=== PATIENT | female | born 1950 | race American Indian/Alaskan Native ===

== ENCOUNTER 2021-10-19 15:57 | Emergency (ER) | payer MEDICARE ==
[~2021-10-19 15:57] MED LIST: ATROPINE 0.1% (1 MG/10 ML) CARDIAC SYRINGE ONE; DOPamine DRIP 800 MG/D5W 250ML PreMix IV ONE; EPINEPHrine 1 MG/10 ML SYRINGE ONE; SODIUM BICARB 8.4% 50 MEQ/50 ML SYRINGE IV ONE
--- NOTE | 2021-10-19 16:23 | Emergency Department Report ---
ED CPR HPI - General Stated Complaint: CARDIAC ARREST Time Seen by Provider: 10/19/21 16:10 - History of Present Illness Initial Comments: 71 yo F brought in cardiac arrest by the EMS since 15:13 when the got to patients house with call for severe sob. According to EMS patient was in cardiac arrest when they arrived there and she has been down for about 15 minutes. No CPR was provided by the family member. Unknown when she actually lost her pulse at home. CPR was started immediately according to EMS and patient was given epi x 2 and an amp of bicarb before getting to the ED. They reports asystole rhythm all throughout rhythm check except one time before getting to the emergency room that they noticed PEA. Pt was intubated on scene and been bagged with high oxygen flow and peripheral IV access was gained. Pt initial rhythm on presentation to the ED was PEA. CPR continued as air sampling and monitoring was been placed. - Related Data Home Medications Medication Instructions Recorded Confirmed Last Taken Diclofenac 1% [Diclofenac 1% 2 gm TP BID 04/10/21 04/10/21 Unknown topical gel] Previous Rx's Medication Instructions Recorded Last Taken Type Aspirin EC [Halfprin EC] 81 mg PO QDAY #30 04/12/21 Unknown Rx Budesonide/Formoterol Fumarate 2 puff INHALATION BID 30 Days 04/12/21 Unknown Rx [Symbicort 160-4.5 Mcg Inhaler] Furosemide [Lasix TAB] 40 mg PO QDAY tablet 04/12/21 Unknown Rx Furosemide [Lasix] 40 mg PO QDAY #30 04/12/21 Unknown Rx Melatonin [Melatonin 5MG TAB] 5 mg PO QHS #30 tablet 04/12/21 Unknown Rx Metoprolol [Lopressor TAB] 25 mg PO BID tablet 04/12/21 Unknown Rx Metoprolol [Lopressor TAB] 25 mg PO BID #60 04/12/21 Unknown Rx Multivitamin Tab [Multiple Vitamin 1 each PO QDAY tablet 04/12/21 Unknown Rx TAB (Theragran)] Pantoprazole [Protonix TAB] 40 mg PO QDAC #30 tablet 04/12/21 Unknown Rx Rosuvastatin Calcium [Crestor] 40 mg PO QDAY #30 04/12/21 Unknown Rx Venlafaxine HCl [Venlafaxin ER] 75 mg PO QDAY #30 04/12/21 Unknown Rx Venlafaxine [Effexor] 75 mg PO QDAY tablet 04/12/21 Unknown Rx hydroCHLOROthiazide [HCTZ] 25 mg PO QDAY #30 04/12/21 Unknown Rx predniSONE 10 mg PO QDAY #3 tablet 04/12/21 Unknown Rx predniSONE [Deltasone] 20 mg PO QDAY #3 tablet 04/12/21 Unknown Rx predniSONE [Deltasone] 40 mg PO QDAY #3 tablet 04/12/21 Unknown Rx risperiDONE [RisperDAL ORAL LIQD] 1 mg PO QDAY ml 04/12/21 Unknown Rx risperiDONE [RisperDAL] 1 mg PO QHS #30 04/12/21 Unknown Rx Allergies Allergy/AdvReac Type Severity Reaction Status Date / Time No Known Allergies Allergy Verified 04/04/21 14:46 ED Review of Systems ROS: Stated complaint: CARDIAC ARREST Other details as noted in HPI Comment: Unobtainable due to pts medical conditions Cardiovascular: other (Cardiopulmonary arrest) ED Past Medical Hx - Past Medical History Hx Hypertension: Yes Hx Heart Attack/AMI: Yes Hx Congestive Heart Failure: Yes Hx GERD: Yes Hx Psychiatric Treatment: Yes (Schizophrenia) Hx Asthma: Yes Hx Dementia: Yes Additional medical history: dementia, schizophrenia - Surgical History Hx Coronary Stent: Yes - Social History Smoking Status: Never Smoker - Medications Home Medications: Home Medications Medication Instructions Recorded Confirmed Last Taken Type Diclofenac 1% [Diclofenac 1% 2 gm TP BID 04/10/21 04/10/21 Unknown History topical gel] Aspirin EC [Halfprin EC] 81 mg PO QDAY #30 04/12/21 Unknown Rx Budesonide/Formoterol Fumarate 2 puff INHALATION BID 30 Days 04/12/21 Unknown Rx [Symbicort 160-4.5 Mcg Inhaler] Furosemide [Lasix TAB] 40 mg PO QDAY tablet 04/12/21 Unknown Rx Furosemide [Lasix] 40 mg PO QDAY #30 04/12/21 Unknown Rx Melatonin [Melatonin 5MG TAB] 5 mg PO QHS #30 tablet 04/12/21 Unknown Rx Metoprolol [Lopressor TAB] 25 mg PO BID tablet 04/12/21 Unknown Rx Metoprolol [Lopressor TAB] 25 mg PO BID #60 04/12/21 Unknown Rx Multivitamin Tab [Multiple Vitamin 1 each PO QDAY tablet 04/12/21 Unknown Rx TAB (Theragran)] Pantoprazole [Protonix TAB] 40 mg PO QDAC #30 tablet 04/12/21 Unknown Rx Rosuvastatin Calcium [Crestor] 40 mg PO QDAY #30 04/12/21 Unknown Rx Venlafaxine HCl [Venlafaxin ER] 75 mg PO QDAY #30 04/12/21 Unknown Rx Venlafaxine [Effexor] 75 mg PO QDAY tablet 04/12/21 Unknown Rx hydroCHLOROthiazide [HCTZ] 25 mg PO QDAY #30 04/12/21 Unknown Rx predniSONE 10 mg PO QDAY #3 tablet 04/12/21 Unknown Rx predniSONE [Deltasone] 20 mg PO QDAY #3 tablet 04/12/21 Unknown Rx predniSONE [Deltasone] 40 mg PO QDAY #3 tablet 04/12/21 Unknown Rx risperiDONE [RisperDAL ORAL LIQD] 1 mg PO QDAY ml 04/12/21 Unknown Rx risperiDONE [RisperDAL] 1 mg PO QHS #30 04/12/21 Unknown Rx ED Physical Exam - General Limitations: Other (intubated ) General appearance: other (unresponsive and intubated ) - Head Head exam: Present: atraumatic - Eye Eye exam: Present: other (pupil fully dialated and fixed bilaterally) Pupils: Present: other (pupil fully dialated and fixed bilaterally) - ENT ENT exam: Present: other (intubated ) - Respiratory Respiratory exam: Present: other (currently been bagged with high flow oxygen supplement) - Cardiovascular Cardiovascular Exam: Present: other (cardiac arrest ) - Neurological Exam Neurological exam: Present: other (unresponsive and intubated ) ED Course - Reevaluation(s) Reevaluation #1: 10/19/21 16:28 Pt brought in with cardiopulmonary arrest with effective CPR in progress. This was continued. Pt has had epi x 2 en route and notice to be in PEA on the i nitial rhythm check in the ER. Pt was given another round of epi with noted PEA. CPR continued at this point. By this time patient has been having effective CPR for the last 40 minutes with no spontaneous cardiac activity noted. Patient was given second round of epi x1 in the emergency room and was noted to still be in PEA by then she has had effective CPR since 15:13 to 15:57 with no ROSC. Her pupil was noted to be fully dilated and fixed with no chance of any meaningful neurological outcome. At this point at 15:57 PM CPR discontinued and patient pronounced . Differential diagnosis could be but not limited to myocardial infarction, pulmonary embolism, or cerebrovascular accident. I went and met with patient's granddaughter who came with the patient and happened to be one of her caregiver. She was updated who while i was with her called other family member and updated them. 10/19/21 16:41 ED Medical Decision Making - Medical Decision Making Please see HPI and progress note for detail - Differential Diagnosis but not limited to ME, PE, or CVA Critical Care Time: Yes (45 minutes) Critical care time in (mins) excluding proc time.: 45 Critical care attestation.: If time is entered above; I have spent that time in minutes in the direct care of this critically ill patient, excluding procedure time. This patient brought in with CPR in progress as a result of cardiopulmonary arrest and due to high probability of clinically significant, life threatening deterioration, this patient required my highest level of preparedness to intervene emergently and I personally spent this critical care time directly and personally managing this patient. This critical care time included obtaining a history; examining this patient; pulse oximetry ; ordering and review of studies ; arranging urgent treatment with development of a management plan ; evaluation of patient's response to treatment ; frequent reassessment ; and, discussion with other providers. This critical care time was performed to assess and manage the high probability of imminent, life-threatening deterioration that could result in multiple organ damage if not done in a timely fashion. Critical Care Time: 45 minutes ED Disposition Clinical Impression: Cardiopulmonary arrest, Cardiac arrest Disposition: 20 Is pt being admited?: No Does the pt Need Aspirin: No Condition: Poor Time of Disposition: 16:40
== END 2021-10-19 19:21 ==
LOC: ED 15:57
DX: I46.9 Cardiac arrest, cause unspecified (principal); I11.0 Hypertensive heart disease with heart failure; I50.9 Heart failure, unspecified; K21.9 Gastro-esophageal reflux disease without esophagitis; F20.9 Schizophrenia, unspecified; J45.909 Unspecified asthma, uncomplicated; F03.90 Unspecified dementia, unspecified severity, without behavioral disturbance, psychotic disturbance, mood disturbance, and anxiety; I21.9 Acute myocardial infarction, unspecified
CPT/HCPCS: 92950; 99285; J0171; J0461; J1265